=== PATIENT | male | born 1985 | race Caucasian/White ===

== ENCOUNTER 2017-04-05 17:00 | Emergency (ER) | payer MEDICAID, OTHER ==
[~2017-04-05] VITALS: Ht 185.4 cm; Wt 105.0 kg
[2017-04-05 17:07] VITALS: BP 110/79
[2017-04-05] MEDS ORDERED: FLUORESCEIN OPHTHALMIC 1 MG STRIP ONE (17:26)
== END 2017-04-05 17:51 | disposition home or self-care (01) ==
LOC: ED 17:45
DX: T15.02XA Foreign body in cornea, left eye, initial encounter (principal); W19.XXXA Unspecified fall, initial encounter; Y93.89 Activity, other specified; Y92.89 Other specified places as the place of occurrence of the external cause; Y99.8 Other external cause status
CPT/HCPCS: 99284